=== PATIENT | female | born 1970 | race Hispanic/Latino ===

== ENCOUNTER 2020-06-14 22:34 | Inpatient (IN) | payer OTHER ==
[~2020-06-14] VITALS: Ht 160 cm; Wt 77.6 kg
[2020-06-15] VITALS (10 sets, daily range): BP systolic 94–111; BP diastolic 46–60
[2020-06-15 00:27] LABS: CREATININE 0.8 mg/dL (0.5-1.5); POTASSIUM 3.3 mmol/L (3.5-5.1)
[2020-06-15 00:28] LABS: INR 1.56 (0.85-1.15); PROTHROMBIN TIME 16.3 SEC (9.6-11.6)
[2020-06-15 00:29] LABS: PARTIAL THROMBOPLASTIN TIME 24.8 SEC (26.3-35.5)
[2020-06-15 00:31] LABS: ALBUMIN 2.7 g/dL (3.5-5.0); BASOPHILS % (AUTO) 0.2 % (0.0-5.0); BILIRUBIN,TOTAL 1.4 mg/dL (0.2-1.0); EOSINOPHILS % (AUTO) 0.8 % (0.0-8.0); HEMATOCRIT 32.4 % (36-48); LYMPHOCYTES % (AUTO) 20.9 % (21.0-51.0); MEAN CORPUSCULAR HEMOGLOBIN 35.3 pg (27.0-33.0); MEAN CORPUSCULAR HGB CONC 33.6 g/dL (32.0-36.0); MEAN CORPUSCULAR VOLUME 104.9 fL (79-99); MONOCYTES % (AUTO) 11.4 % (3.0-13.0); NEUTROPHILS % (AUTO) 65.5 % (40.0-77.0); PLATELET COUNT (AUTO) 40 K/uL (130-400); RED BLOOD CELL COUNT(AUTO) 3.09 MIL/uL (4.00-5.50); RED CELL DISTRIBUTION WIDTH 15.5 % (11.0-15.5); TOTAL PROTEIN, SERUM 6.7 g/dL (6.0-8.3)
[2020-06-15 00:35] LABS: B-TYPE NATRIURETIC PEPTIDE 30 pg/mL (0-100)
[2020-06-15] MEDS ORDERED: SODIUM CHLORIDE 0.9% 1000ML 1,000 ML IV ONE (02:48)
[2020-06-15 03:03] LABS: APPEARANCE,URINE Clear (CLEAR); BILIRUBIN,URINE Small (NEGATIVE); COLOR,URINE Dark Yellow (YELLOW); GLUCOSE, URINE (UA) Negative (NEGATIVE); KETONES,URINE Trace mg/dL (NEGATIVE); LEUKOCYTE ESTERASE ,URINE Negative (NEGATIVE); NITRATE,URINE Negative (NEGATIVE); OCCULT BLOOD,URINE Negative (NEGATIVE); PROTEIN,URINE Negative (NEGATIVE)
[2020-06-15] MEDS ORDERED: ACETAMINOPHEN 325 MG TAB PO PRN (03:15)
[2020-06-15] MEDS ORDERED: MORPHINE SULFATE 2 MG/ML 1ML SYG IV PRN (03:15)
[2020-06-15] MEDS ORDERED: ONDANSETRON HCL 4 MG/2 ML VIAL IV PRN (03:15)
[2020-06-15] MEDS ORDERED: LEVOFLOXACIN 500 MG/D5W 100 ML 100 ML ONE (03:35)
[2020-06-15] MEDS ORDERED: MORPHINE SULFATE 2 MG/ML 1ML SYG ONE (03:52)
[2020-06-15 04:50] LABS: EOSINOPHILS % (AUTO) 1.5 % (0.0-8.0); HEMATOCRIT 25.3 % (36-48); LYMPHOCYTES % (AUTO) 25.7 % (21.0-51.0); MEAN CORPUSCULAR HGB CONC 33.2 g/dL (32.0-36.0); MEAN CORPUSCULAR VOLUME 105.4 fL (79-99); MONOCYTES % (AUTO) 12.7 % (3.0-13.0); PLATELET COUNT (AUTO) 29 K/uL (130-400); RED CELL DISTRIBUTION WIDTH 15.1 % (11.0-15.5); WHITE BLOOD COUNT (AUTO) 2.7 K/uL (4.8-10.8)
[2020-06-15 04:58] LABS: INR 1.68 (0.85-1.15); PROTHROMBIN TIME 17.5 SEC (9.6-11.6)
[2020-06-15 04:59] LABS: PARTIAL THROMBOPLASTIN TIME 29.8 SEC (26.3-35.5)
[2020-06-15 05:15] LABS: ALBUMIN 2.1 g/dL (3.5-5.0); CREATININE 0.6 mg/dL (0.5-1.5); TOTAL PROTEIN, SERUM 5.2 g/dL (6.0-8.3)
[2020-06-15 05:18] LABS: POTASSIUM 2.9 mmol/L (3.5-5.1)
[2020-06-15] MEDS ORDERED: POTASSIUM CHLORIDE 20MEQ/100ML 100 ML IV ONE ×2 (05:39→07:53)
[2020-06-15] MEDS ORDERED: LIDOCAINE HCL-MPF 1% 2ML VIAL ONE ×2 (05:39→07:52)
[2020-06-15 05:56] LABS: HEMOGLOBIN A1C 4.7 % (4.0-6.0)
[2020-06-15] MEDS ORDERED: ACETAMINOPHEN 325 MG TAB ONE (07:53)
[2020-06-15] MEDS ORDERED: LIDOCAINE HCL-MPF 1% 2ML VIAL IV PRN (08:15)
[2020-06-15] MEDS ORDERED: POTASSIUM CHLORIDE 10% ELIXIR 20 MEQ/15 ML UDCUP PO PRN (08:15)
[2020-06-15] MEDS ORDERED: POTASSIUM CHLORIDE 10MEQ/100ML 100 ML IV PRN (08:15)
[2020-06-15] MEDS ORDERED: DEXTROSE 50%-WATER 50 ML DISP.SYRIN IV PRN (08:30)
[2020-06-15] MEDS ORDERED: GLUCAGON 1MG KIT 1 MG ML IM PRN (08:30)
[2020-06-15] MEDS: FAMOTIDINE/PF 20 MG/2 ML VIAL IV SCH ×2 (09:00→21:54)
[2020-06-15] MEDS ORDERED: SPIR50TA PO (11:02)
[2020-06-15] MEDS ORDERED: FURO20TA4 PO (11:02)
[2020-06-15] MEDS ORDERED: RIFA550T PO (11:02)
[2020-06-15] MEDS ORDERED: FOLI0.4T6 PO (11:02)
[2020-06-15] MEDS ORDERED: PANT40TA54 PO (11:02)
[2020-06-15] MEDS ORDERED: CYAN500T9 PO (11:02)
[2020-06-15] MEDS ORDERED: VITA-164 PO (11:02)
[2020-06-15] MEDS ORDERED: LACT10SO9 PO (11:02)
[2020-06-15 11:35] LABS: CREATININE 0.5 mg/dL (0.5-1.5)
[2020-06-15 13:40] LABS: APPEARANCE BODY FLUID CLEAR (CLEAR); SPECIMENTYPE,BODY FLUID ASCITES
[2020-06-15 13:41] LABS: BODY FLUID RBC 578 /cu. mm.; BODY FLUID WBC 218 /cu. mm.; COLOR,BODY FLUID YELLOW (LT YELLOW); TOTAL VOLUME,BODY FLUID 3100 mL
[2020-06-15 13:49] LABS: BF LYMPHOCYTE 15 %; BF MESOTHELIAL 62 %; BF MONOCYTE 15 %
[2020-06-15] MEDS ORDERED: LACTATED RINGERS 1000ML 1,000 ML IV SCH (15:00)
[2020-06-15 15:11] LABS: CREATININE 0.6 mg/dL (0.5-1.5); POTASSIUM 3.8 mmol/L (3.5-5.1)
[2020-06-15 15:53] LABS: HEMATOCRIT 28.2 % (36-48)
[2020-06-15] MEDS ORDERED: PHARMACY COMMUNICATION MISC SCH (16:00)
[2020-06-15 16:30] LABS: % IRON SATURATION 43.2 % (22-44)
[2020-06-15] MEDS ORDERED: ALBUMIN (HUMAN) 5% 250 ML IV SCH (16:45)
[2020-06-15 18:47] LABS: CREATININE 0.7 mg/dL (0.5-1.5); POTASSIUM 3.5 mmol/L (3.5-5.1)
[2020-06-15] MEDS ORDERED: LACTULOSE 20 GM/30 ML UDCUP ONE (21:51)
[2020-06-15] MEDS: MIDODRINE HCL 5 MG TABLET PO SCH (21:53)
[2020-06-15 22:34] LABS: CREATININE 0.7 mg/dL (0.5-1.5); POTASSIUM 3.4 mmol/L (3.5-5.1)
[2020-06-15] MEDS ORDERED: LACTULOSE 20 GM/30 ML UDCUP PO SCH (22:45)
[2020-06-16 00:28] VITALS: BP 101/58
[2020-06-16] MEDS: LEVOFLOXACIN 500 MG/D5W 100 ML 100 ML IV SCH (03:58)
[2020-06-16] MEDS: POTASSIUM CHLORIDE 20 MEQ ERTAB PO PRN ×2 (04:15→06:03)
[2020-06-16 04:28] VITALS: BP 99/60
[2020-06-16 08:00] VITALS: BP 99/59
[2020-06-16] MEDS: MIDODRINE HCL 5 MG TABLET PO SCH ×3 (09:08→20:20)
[2020-06-16] MEDS: FAMOTIDINE/PF 20 MG/2 ML VIAL IV SCH ×2 (09:12→20:20)
[2020-06-16 12:00] VITALS: BP 102/60
[2020-06-16] MEDS: RIFAXIMIN 550 MG TABLET PO SCH ×2 (12:11→20:20)
[2020-06-16] MEDS: CYANOCOBALAMIN (VITAMIN B-12) 1,000 MCG TABLET PO SCH (12:12)
[2020-06-16] MEDS: VITAMIN E 400 UNIT CAPSULE PO SCH (12:12)
[2020-06-16] MEDS: LACTULOSE 20 GM/30 ML UDCUP PO SCH ×2 (12:12→17:41)
[2020-06-16] MEDS: SPIRONOLACTONE 25 MG TAB PO SCH (12:12)
[2020-06-16] MEDS: FOLIC ACID 1 MG TABLET PO SCH (12:12)
[2020-06-16] MEDS: FUROSEMIDE 20 MG TABLET PO SCH (12:12)
[2020-06-16 16:00] VITALS: BP 93/57
[2020-06-16 16:08] LABS: HEPATITIS A ANTIBODY IGM Negative (Negative); HEPATITIS B CORE IGM Negative (Negative); HEPATITIS Bs ANTIGEN SCREEN P Negative (Negative)
[2020-06-16 19:00] VITALS: BP 102/64
[2020-06-17 00:24] VITALS: BP 117/72
[2020-06-17] MEDS: LEVOFLOXACIN 500 MG/D5W 100 ML 100 ML IV SCH (03:32)
[2020-06-17] MEDS: LACTULOSE 20 GM/30 ML UDCUP PO SCH ×3 (03:32→18:36)
[2020-06-17 05:50] VITALS: BP 103/58
[2020-06-17 08:17] VITALS: BP 92/56
[2020-06-17 08:25] LABS: EOSINOPHILS % (AUTO) 1.7 % (0.0-8.0); LYMPHOCYTES % (AUTO) 23.8 % (21.0-51.0); MEAN CORPUSCULAR HEMOGLOBIN 35.8 pg (27.0-33.0); MEAN CORPUSCULAR HGB CONC 33.7 g/dL (32.0-36.0); MEAN CORPUSCULAR VOLUME 106.4 fL (79-99); MONOCYTES % (AUTO) 12.1 % (3.0-13.0); NEUTROPHILS % (AUTO) 61.1 % (40.0-77.0); PLATELET COUNT (AUTO) 44 K/uL (130-400); RED BLOOD CELL COUNT(AUTO) 2.82 MIL/uL (4.00-5.50); RED CELL DISTRIBUTION WIDTH 15.7 % (11.0-15.5); WHITE BLOOD COUNT (AUTO) 2.4 K/uL (4.8-10.8)
[2020-06-17 08:38] LABS: ALBUMIN 2.4 g/dL (3.5-5.0); BILIRUBIN,TOTAL 1.8 mg/dL (0.2-1.0); CREATININE 0.6 mg/dL (0.5-1.5); MAGNESIUM 1.7 mg/dL (1.80-2.40); POTASSIUM 3.7 mmol/L (3.5-5.1); TOTAL PROTEIN, SERUM 5.6 g/dL (6.0-8.3)
[2020-06-17] MEDS: FUROSEMIDE 20 MG TABLET PO SCH (09:00)
[2020-06-17 09:37] LABS: EOSINOPHILS % (MANUAL) 3 % (1-6); LYMPHOCYTES % (MANUAL) 25 % (22-44); MAN.DIFF COMMENT-IMPRESSION MANUAL DIFFERENTIAL; MONOCYTES % (MANUAL) 12 % (2-9); PLATELET MORPHOLOGY COMMENT MARKED DECREASE; SEGMENTED NEUTROPHILS % 60 % (40-70)
[2020-06-17] MEDS: FAMOTIDINE/PF 20 MG/2 ML VIAL IV SCH ×2 (10:09→21:51)
[2020-06-17] MEDS: RIFAXIMIN 550 MG TABLET PO SCH ×2 (10:10→21:52)
[2020-06-17] MEDS: SPIRONOLACTONE 25 MG TAB PO SCH (10:11)
[2020-06-17] MEDS: VITAMIN E 400 UNIT CAPSULE PO SCH (10:11)
[2020-06-17] MEDS: CYANOCOBALAMIN (VITAMIN B-12) 1,000 MCG TABLET PO SCH (10:11)
[2020-06-17] MEDS: MIDODRINE HCL 5 MG TABLET PO SCH ×3 (10:11→21:52)
[2020-06-17] MEDS: FOLIC ACID 1 MG TABLET PO SCH (10:11)
[2020-06-17 11:00] VITALS: BP 94/52
[2020-06-17] MEDS: MAGNESIUM 2GM PREMIX 50ML 50 ML IV SCH (14:21)
[2020-06-17 16:25] VITALS: BP 112/61
[2020-06-17 19:58] VITALS: BP 107/57
[2020-06-18 00:32] VITALS: BP 110/61
[2020-06-18] MEDS: LEVOFLOXACIN 500 MG/D5W 100 ML 100 ML IV SCH (03:11)
[2020-06-18] MEDS: LACTULOSE 20 GM/30 ML UDCUP PO SCH ×4 (03:11→22:25)
[2020-06-18 04:03] VITALS: BP 99/62
[2020-06-18 05:38] LABS: EOSINOPHILS % (AUTO) 1.6 % (0.0-8.0); HEMATOCRIT 32.7 % (36-48); LYMPHOCYTES % (AUTO) 17.5 % (21.0-51.0); MEAN CORPUSCULAR HEMOGLOBIN 34.9 pg (27.0-33.0); MEAN CORPUSCULAR HGB CONC 33.6 g/dL (32.0-36.0); MEAN CORPUSCULAR VOLUME 103.8 fL (79-99); MONOCYTES % (AUTO) 13.1 % (3.0-13.0); PLATELET COUNT (AUTO) 58 K/uL (130-400); RED BLOOD CELL COUNT(AUTO) 3.15 MIL/uL (4.00-5.50); RED CELL DISTRIBUTION WIDTH 16.2 % (11.0-15.5)
[2020-06-18 06:01] LABS: ALBUMIN 2.5 g/dL (3.5-5.0); BILIRUBIN,TOTAL 1.8 mg/dL (0.2-1.0); CREATININE 0.9 mg/dL (0.5-1.5); POTASSIUM 3.7 mmol/L (3.5-5.1); TOTAL PROTEIN, SERUM 5.8 g/dL (6.0-8.3)
[2020-06-18 08:07] VITALS: BP 90/50
[2020-06-18] MEDS: RIFAXIMIN 550 MG TABLET PO SCH ×2 (09:53→22:25)
[2020-06-18] MEDS: FAMOTIDINE/PF 20 MG/2 ML VIAL IV SCH ×2 (09:54→22:26)
[2020-06-18] MEDS: VITAMIN E 400 UNIT CAPSULE PO SCH (09:54)
[2020-06-18] MEDS: MIDODRINE HCL 5 MG TABLET PO SCH ×3 (09:54→22:25)
[2020-06-18] MEDS: SPIRONOLACTONE 25 MG TAB PO SCH (09:54)
[2020-06-18] MEDS: FOLIC ACID 1 MG TABLET PO SCH (09:54)
[2020-06-18] MEDS: CYANOCOBALAMIN (VITAMIN B-12) 1,000 MCG TABLET PO SCH (09:55)
[2020-06-18 12:27] VITALS: BP 119/69
[2020-06-18 18:03] VITALS: BP 102/64
[2020-06-18 20:43] VITALS: BP 107/64
[2020-06-19 00:46] VITALS: BP 96/56
[2020-06-19] MEDS: LEVOFLOXACIN 500 MG/D5W 100 ML 100 ML IV SCH (03:03)
[2020-06-19 04:28] VITALS: BP 119/56
[2020-06-19] MEDS: LACTULOSE 20 GM/30 ML UDCUP PO SCH ×2 (05:25→13:14)
[2020-06-19 06:13] LABS: BASOPHILS % (AUTO) 0.3 % (0.0-5.0); EOSINOPHILS % (AUTO) 2.4 % (0.0-8.0); HEMATOCRIT 33.2 % (36-48); LYMPHOCYTES % (AUTO) 22.8 % (21.0-51.0); MEAN CORPUSCULAR HEMOGLOBIN 35.7 pg (27.0-33.0); MEAN CORPUSCULAR HGB CONC 33.7 g/dL (32.0-36.0); MEAN CORPUSCULAR VOLUME 105.7 fL (79-99); MONOCYTES % (AUTO) 11.8 % (3.0-13.0); NEUTROPHILS % (AUTO) 61.8 % (40.0-77.0); PLATELET COUNT (AUTO) 46 K/uL (130-400); RED BLOOD CELL COUNT(AUTO) 3.14 MIL/uL (4.00-5.50); RED CELL DISTRIBUTION WIDTH 16.4 % (11.0-15.5); WHITE BLOOD COUNT (AUTO) 3.4 K/uL (4.8-10.8)
[2020-06-19 06:38] LABS: ALBUMIN 2.4 g/dL (3.5-5.0); BILIRUBIN,DIRECT 0.6 mg/dL (0.0-0.3); BILIRUBIN,TOTAL 2.2 mg/dL (0.2-1.0); CREATININE 0.6 mg/dL (0.5-1.5); MAGNESIUM 1.7 mg/dL (1.80-2.40); POTASSIUM 3.7 mmol/L (3.5-5.1); TOTAL PROTEIN, SERUM 5.5 g/dL (6.0-8.3)
[2020-06-19] MEDS: CYANOCOBALAMIN (VITAMIN B-12) 1,000 MCG TABLET PO SCH (09:00)
[2020-06-19 09:55] VITALS: BP 91/51
[2020-06-19] MEDS: MAGNESIUM 2GM PREMIX 50ML 50 ML IV SCH (11:07)
[2020-06-19] MEDS: MIDODRINE HCL 5 MG TABLET PO SCH ×2 (11:07→15:24)
[2020-06-19] MEDS: VITAMIN E 400 UNIT CAPSULE PO SCH (11:08)
[2020-06-19] MEDS: FOLIC ACID 1 MG TABLET PO SCH (11:08)
[2020-06-19] MEDS: SPIRONOLACTONE 25 MG TAB PO SCH (11:08)
[2020-06-19] MEDS: RIFAXIMIN 550 MG TABLET PO SCH (11:08)
[2020-06-19] MEDS: FAMOTIDINE/PF 20 MG/2 ML VIAL IV SCH (11:09)
[2020-06-19] MEDS ORDERED: RIFA550T PO (11:51)
[2020-06-19] MEDS ORDERED: MIDO10TA PO (11:51)
[2020-06-19] MEDS ORDERED: LACT PO (11:51)
[2020-06-19] MEDS ORDERED: SPIR50TA PO (11:51)
[2020-06-19 14:33] VITALS: BP 113/66
[2020-06-21 15:13] LABS: ALPHA-1-ANTITRYPSIN 115 mg/dL (101-187)
== END 2020-06-19 17:00 | disposition home or self-care (01) | DRG 871 ==
LOC: EDH 22:34 → EDHIP 22:35 → 3DH 06-15 10:22
PROVIDERS: ADMIT Internal Medicine; ATTEND Internal Medicine
PROC: 0W9G3ZZ Drainage of Peritoneal Cavity, Percutaneous Approach (ICD-10-PCS; principal; 2020-06-15)
DX: A41.9 Sepsis, unspecified organism (principal); G93.41 Metabolic encephalopathy; R18.8 Other ascites; D61.818 Other pancytopenia; K76.6 Portal hypertension; K72.90 Hepatic failure, unspecified without coma; K74.60 Unspecified cirrhosis of liver; K76.0 Fatty (change of) liver, not elsewhere classified; D73.1 Hypersplenism; D69.59 Other secondary thrombocytopenia; E87.6 Hypokalemia; Z20.822 Contact with and (suspected) exposure to COVID-19; E88.09 Other disorders of plasma-protein metabolism, not elsewhere classified; Z90.710 Acquired absence of both cervix and uterus
CPT/HCPCS: 36415; 49083; 70450; 71045; 71250; 74176; 80048; 80053; 80074; 80076; 81003; 82103; 82104; 82140; 82525; 82550; 82728; 83036; 83540; 83550; 83605; 83690; 83735; 83880; 84145; 84484; 85014; 85018; 85025; 85610; 85730; 86038; 86235; 86255; 86701; 87040; 87071; 87088; 87205; 87390; 87426; 89051; 93005; 93306; 93356; G0378; J1956; J2405; J3475; J3480; J3490; J7030; P9045; U0003

== ENCOUNTER → 2020-07-16 | Outpatient (CLI) | payer OTHER ==
[~2020-07-16] MED LIST: CYAN500T9 PO; FOLI0.4T6 PO; LACT PO; LACT10SO9 PO; MIDO10TA PO; PANT40TA54 PO; RIFA550T PO; SPIR50TA PO; VITA-164 PO
[2020-07-16 12:04] LABS: BASOPHILS % (AUTO) 0.4 % (0.0-5.0); EOSINOPHILS % (AUTO) 0.7 % (0.0-8.0); HEMATOCRIT 38.1 % (36-48); LYMPHOCYTES % (AUTO) 22.5 % (21.0-51.0); MEAN CORPUSCULAR HEMOGLOBIN 35.8 pg (27.0-33.0); MEAN CORPUSCULAR HGB CONC 33.6 g/dL (32.0-36.0); MEAN CORPUSCULAR VOLUME 106.4 fL (79-99); MONOCYTES % (AUTO) 8.9 % (3.0-13.0); NEUTROPHILS % (AUTO) 67.1 % (40.0-77.0); PLATELET COUNT (AUTO) 75 K/uL (130-400); RED BLOOD CELL COUNT(AUTO) 3.58 MIL/uL (4.00-5.50); RED CELL DISTRIBUTION WIDTH 15.4 % (11.0-15.5); WHITE BLOOD COUNT (AUTO) 5.6 K/uL (4.8-10.8)
[2020-07-16] MEDS: ALBUMIN (HUMAN) 25% 200 ML IV SCH ×2 (12:05→12:41)
[2020-07-16 12:12] LABS: INR 1.99 (0.85-1.15); PROTHROMBIN TIME 20.4 SEC (9.6-11.6)
[2020-07-16 12:20] LABS: ALBUMIN 2.4 g/dL (3.5-5.0); BILIRUBIN,TOTAL 4.2 mg/dL (0.2-1.0); CREATININE 0.7 mg/dL (0.5-1.5); POTASSIUM 3.5 mmol/L (3.5-5.1); TOTAL PROTEIN, SERUM 6.6 g/dL (6.0-8.3)
[2020-07-16 13:12] LABS: ALBUMIN,BODY FLUID 0.3 g/dL
[2020-07-16 14:06] LABS: APPEARANCE BODY FLUID CLEAR (CLEAR); COLOR,BODY FLUID YELLOW (LT YELLOW); SPECIMENTYPE,BODY FLUID ASCITES; TOTAL VOLUME,BODY FLUID 6000 mL
[2020-07-16 14:07] LABS: BODY FLUID RBC 540 /cu. mm.; BODY FLUID WBC 94 /cu. mm.
[2020-07-16 14:14] LABS: BF LYMPHOCYTE 56 %; BF MESOTHELIAL 14 %; BF MONOCYTE 19 %
== END | disposition home or self-care (01) ==
LOC: RAH 10:56
PROVIDERS: ATTEND Internal Medicine Gastroenterology
DX: R18.8 Other ascites (principal); K74.60 Unspecified cirrhosis of liver; Z79.01 Long term (current) use of anticoagulants
CPT/HCPCS: 36415; 49083; 80053; 82042; 84157; 85025; 85610; 86038; 86255; 87071; 87205; 89051; A4215; 96365; P9046

== ENCOUNTER → 2020-07-22 | Outpatient (CLI) | payer OTHER ==
[~2020-07-22] MED LIST changes: +ALBUMIN (HUMAN) 25% 200 ML IV SCH
[2020-07-22 14:04] LABS: APPEARANCE BODY FLUID CLEAR (CLEAR); COLOR,BODY FLUID YELLOW (LT YELLOW); SPECIMENTYPE,BODY FLUID ASCITES
[2020-07-22 14:05] LABS: BODY FLUID RBC 627 /cu. mm.; BODY FLUID WBC 86 /cu. mm.; TOTAL VOLUME,BODY FLUID 6700 mL
[2020-07-22 14:13] LABS: ALBUMIN,BODY FLUID 0.4 g/dL
[2020-07-22 14:26] LABS: BF LYMPHOCYTE 30 %; BF MESOTHELIAL 49 %; BF MONOCYTE 14 %
== END | disposition home or self-care (01) ==
LOC: RAH 07:52
PROVIDERS: ATTEND Internal Medicine Gastroenterology
DX: R18.8 Other ascites (principal); K74.60 Unspecified cirrhosis of liver; D53.9 Nutritional anemia, unspecified; F41.9 Anxiety disorder, unspecified; Z98.891 History of uterine scar from previous surgery; Z79.899 Other long term (current) drug therapy; Z90.710 Acquired absence of both cervix and uterus
CPT/HCPCS: 49083; 82042; 84157; 87071; 87205; 89051; A4215; P9046; 96365

== ENCOUNTER → 2020-07-29 | Outpatient (CLI) | payer OTHER ==
[2020-07-29 13:09] LABS: APPEARANCE BODY FLUID CLEAR (CLEAR); BODY FLUID RBC 1400 /cu. mm.; BODY FLUID WBC 138 /cu. mm.; COLOR,BODY FLUID YELLOW (LT YELLOW); SPECIMENTYPE,BODY FLUID ASCITES; TOTAL VOLUME,BODY FLUID 6100 mL
[2020-07-29 13:25] LABS: BF LYMPHOCYTE 23 %; BF MESOTHELIAL 40 %; BF MONOCYTE 24 %
[2020-07-29 13:30] LABS: ALBUMIN,BODY FLUID < 0.6 g/dL
== END | disposition home or self-care (01) ==
LOC: RAH 08:15
PROVIDERS: ATTEND Internal Medicine Gastroenterology
DX: R18.8 Other ascites (principal); K74.69 Other cirrhosis of liver; K76.0 Fatty (change of) liver, not elsewhere classified; Z90.710 Acquired absence of both cervix and uterus; Z98.891 History of uterine scar from previous surgery; Z72.89 Other problems related to lifestyle; Z79.899 Other long term (current) drug therapy
CPT/HCPCS: 49083; 82042; 84157; 87071; 87205; 89051; A4215; 96365

== ENCOUNTER 2020-08-03 13:01 | Inpatient (IN) | payer OTHER ==
[2020-08-03] VITALS (15 sets, daily range): BP systolic 51–252; BP diastolic 19–106
[~2020-08-03] VITALS: Ht 160 cm; Wt 72.6 kg
[~2020-08-03 13:01] MED LIST changes: -ALBUMIN (HUMAN) 25% 200 ML IV SCH
[2020-08-03 13:28] LABS: BASOPHILS % (AUTO) 0.5 % (0.0-5.0); EOSINOPHILS % (AUTO) 0.5 % (0.0-8.0); HEMATOCRIT 43.4 % (36-48); LYMPHOCYTES % (AUTO) 29.6 % (21.0-51.0); MEAN CORPUSCULAR HEMOGLOBIN 35.2 pg (27.0-33.0); MEAN CORPUSCULAR HGB CONC 30.9 g/dL (32.0-36.0); MEAN CORPUSCULAR VOLUME 113.9 fL (79-99); NEUTROPHILS % (AUTO) 62.5 % (40.0-77.0); PLATELET COUNT (AUTO) 69 K/uL (130-400); RED BLOOD CELL COUNT(AUTO) 3.81 MIL/uL (4.00-5.50); RED CELL DISTRIBUTION WIDTH 17.9 % (11.0-15.5); WHITE BLOOD COUNT (AUTO) 2.2 K/uL (4.8-10.8)
[2020-08-03 13:39] LABS: ALBUMIN 2.6 g/dL (3.5-5.0); CHLORIDE 102 mmol/L (101-111); GLOMERULAR FILTR. RATE CALC 28 mL/min (>60); POTASSIUM 3.5 mmol/L (3.5-5.1); SODIUM SERUM 133 mmol/L (136-145); UREA NITROGEN, BLOOD 13 mg/dL (7-18)
[2020-08-03 13:42] LABS: AMYLASE 31 U/L (25-115); ASPARTATE AMINOTRANSFERASE 109 U/L (10-37); BILIRUBIN,TOTAL 4.7 mg/dL (0.2-1.0); CARBON DIOXIDE 9 mmol/L (21-32); CREATINE KINASE, TOTAL 65 U/L (21-232); GLUCOSE,RANDOM 47 mg/dL (70-105); TOTAL PROTEIN, SERUM 5.5 g/dL (6.0-8.3)
[2020-08-03 13:44] LABS: LIPASE < 50 U/L (114-286)
[2020-08-03] MEDS ORDERED: DEXTROSE 50%-WATER 50 ML DISP.SYRIN IV ONE (13:44)
[2020-08-03] MEDS ORDERED: LACTULOSE 20 GM/30 ML UDCUP PO ONE (13:45)
[2020-08-03 13:47] LABS: B-TYPE NATRIURETIC PEPTIDE 181 pg/mL (0-100)
[2020-08-03 14:10] LABS: ALANINE AMINOTRANSFERASE 30 U/L (12-78); BAND NEUTROPHILS % (MANUAL) 8 % (0-2); LYMPHOCYTES % (MANUAL) 20 % (22-44); MONOCYTES % (MANUAL) 4 % (2-9); NUCLEATED RED BLOOD CELLS 7.7 % (0.0-0.19); REACTIVE LYMPHOCYTES 24 % (0-0); SEGMENTED NEUTROPHILS % 44 % (40-70)
[2020-08-03 14:11] LABS: PLATELET MORPHOLOGY COMMENT MARKED DECREASE
[2020-08-03] MEDS ORDERED: NOREPINEPHRIN 4MG/NS 250ML 250 ML IV ONE (14:15)
[2020-08-03] MEDS ORDERED: NOREPINEPHRIN 4MG/NS 250ML 250 ML IV SCH (14:15)
[2020-08-03] MEDS ORDERED: ALBUMIN (HUMAN) 25% 100 ML IV ONE ×2 (15:06→15:24)
[2020-08-03] MEDS ORDERED: 0.9%NACL 1000ML 1,000 ML IV SCH (15:15)
[2020-08-03] MEDS ORDERED: ONDANSETRON 4MG INJ IV PRN (15:15)
[2020-08-03] MEDS ORDERED: ACETAMINOPHEN 325 MG TAB PO PRN ×2 (15:15)
[2020-08-03] MEDS ORDERED: ZOSYN 3.375GM+NS 50ML 50 ML IV ONE (15:41)
[2020-08-03] MEDS ORDERED: 0.9%NACL 50ML 50 ML IV ONE ×2 (15:49→22:49)
[2020-08-03] MEDS: ZOSYN 3.375GM+NS 50ML 50 ML IV SCH (15:58)
[2020-08-03] MEDS ORDERED: LACTATED RINGERS 1000ML IV SCH (16:45)
[2020-08-03] MEDS ORDERED: VASOPRESSIN 40 UNITS in 0.9%NACL 50ML 40 ML IV STA (17:49)
[2020-08-03 18:53] LABS: ABG BASE EXCESS -23.8 mmol/L (-2.0-3.0); ABG HCO3 5.6 mmol/L (21.0-28.0); ABG OXYGEN SATURATION 89.4 % (95.0-99.0); ABG PCO2 22 mmHg (32-45)
[2020-08-03] MEDS ORDERED: SODIUM BICARB 50MEQ 50ML VIAL IV ONE (19:45)
[2020-08-03] MEDS ORDERED: PHARMACY COMMUNICATION MISC STA ×2 (19:45→19:56)
[2020-08-03] MEDS ORDERED: VASOPRESSIN 40 UNITS in 0.9%NACL 50ML 40 ML IV SCH (20:15)
[2020-08-03] MEDS ORDERED: LACTULOSE 20 GM/30 ML UDCUP PO SCH (21:00)
[2020-08-03] MEDS ORDERED: MIDODRINE HCL 5 MG TABLET PO SCH (21:00)
[2020-08-03] MEDS ORDERED: HYDROCORTISONE SOD SUCCINATE 100 MG/2 ML VIAL IV SCH (21:00)
[2020-08-03] MEDS ORDERED: OCTREOTIDE ACETATE 100 MCG/ML AMP SQ SCH (21:00)
[2020-08-03] MEDS ORDERED: CEFTRIAXONE 1G VIAL IV SCH (21:00)
[2020-08-03] MEDS ORDERED: RIFAXIMIN 550 MG TABLET PO SCH (21:00)
[2020-08-03] MEDS: ALBUMIN (HUMAN) 25% 50 ML IV SCH (22:00)
[2020-08-03] MEDS: SODIUM BICARB 50MEQ 50ML VIAL 150 MEQ in DEXTROSE 5%-WATER 1,000 ML IV SCH (22:00)
[2020-08-03] MEDS ORDERED: 0.9%NACL 1000ML 1,000 ML IV ONE (23:39)
[2020-08-04] VITALS (9 sets, daily range): BP systolic 61–164; BP diastolic 17–112
[2020-08-04] MEDS ORDERED: 0.9%NACL 1000ML 1,000 ML IV ONE (01:00)
[2020-08-04 01:08] LABS: ABG BASE EXCESS -26.9 mmol/L (-2.0-3.0); ABG HCO3 7.2 mmol/L (21.0-28.0); ABG OXYGEN SATURATION 21.8 % (95.0-99.0); ABG PCO2 44 mmHg (32-45)
[2020-08-04] MEDS ORDERED: SODIUM BICARB 50MEQ 50ML VIAL 150 ML ONE (01:21)
[2020-08-04] MEDS ORDERED: SODIUM BICARB 50MEQ 50ML VIAL IV ONE (01:30)
[2020-08-04] MEDS: SODIUM BICARB 50MEQ 50ML VIAL 150 MEQ in DEXTROSE 5%-WATER 1,000 ML IV SCH (05:02)
[2020-08-04] MEDS ORDERED: ALBUMIN (HUMAN) 25% 0 ML IV ONE (05:13)
[2020-08-04 05:20] LABS: INR > 7.00 (0.85-1.15); PROTHROMBIN TIME > 90.0 SEC (9.6-11.6)
[2020-08-04 05:21] LABS: D-DIMER 1632 ng/mL (0-500)
[2020-08-04] MEDS ORDERED: 0.9%NACL 50ML 50 ML IV ONE (05:21)
[2020-08-04] MEDS: ZOSYN 3.375GM+NS 50ML 50 ML IV SCH (05:24)
[2020-08-04] MEDS: ALBUMIN (HUMAN) 25% 50 ML IV SCH (05:31)
[2020-08-04 07:01] LABS: BASOPHILS % (AUTO) 0.6 % (0.0-5.0); EOSINOPHILS % (AUTO) 9.3 % (0.0-8.0); HEMATOCRIT 37.9 % (36-48); LYMPHOCYTES % (AUTO) 30.9 % (21.0-51.0); MEAN CORPUSCULAR HEMOGLOBIN 36.1 pg (27.0-33.0); MEAN CORPUSCULAR HGB CONC 29.8 g/dL (32.0-36.0); MEAN CORPUSCULAR VOLUME 121.1 fL (79-99); MONOCYTES % (AUTO) 10.5 % (3.0-13.0); NEUTROPHILS % (AUTO) 35.1 % (40.0-77.0); RED BLOOD CELL COUNT(AUTO) 3.13 MIL/uL (4.00-5.50); RED CELL DISTRIBUTION WIDTH 17.7 % (11.0-15.5); WHITE BLOOD COUNT (AUTO) 1.6 K/uL (4.8-10.8)
[2020-08-04 07:07] LABS: AMMONIA 254 umol/L (11-32)
[2020-08-04 07:13] LABS: ALANINE AMINOTRANSFERASE 47 U/L (12-78); ALBUMIN 1.4 g/dL (3.5-5.0); ASPARTATE AMINOTRANSFERASE 399 U/L (10-37); CHLORIDE 107 mmol/L (101-111); GLOMERULAR FILTR. RATE CALC 28 mL/min (>60); POTASSIUM 5.4 mmol/L (3.5-5.1); SODIUM SERUM 143 mmol/L (136-145); UREA NITROGEN, BLOOD 14 mg/dL (7-18)
[2020-08-04 07:31] LABS: CARBON DIOXIDE 9 mmol/L (21-32)
[2020-08-04 07:54] LABS: PLATELET COUNT (AUTO) 4 K/uL (130-400)
[2020-08-04 08:15] LABS: NUCLEATED RED BLOOD CELLS 60.2 % (0.0-0.19)
[2020-08-04 08:36] LABS: D-DIMER 2913 ng/mL (0-500); FIBRINOGEN 53 mg/dL (180-350)
[2020-08-04] MEDS ORDERED: FAMOTIDINE 20MG VIAL IV SCH (09:00)
== END 2020-08-04 08:04 | DRG 871 ==
LOC: EDH 13:01 → EDHIP 15:08 → 2CH 22:42
PROVIDERS: ADMIT Internal Medicine; ATTEND Internal Medicine
PROC: 5A09357 Assistance with Respiratory Ventilation, Less than 24 Consecutive Hours, Continuous Positive Airway Pressure (ICD-10-PCS; 2020-08-03)
PROC: 02H633Z Insertion of Infusion Device into Right Atrium, Percutaneous Approach (ICD-10-PCS; 2020-08-03)
PROC: B548ZZA Ultrasonography of Superior Vena Cava, Guidance (ICD-10-PCS; 2020-08-03)
PROC: 0W9G3ZZ Drainage of Peritoneal Cavity, Percutaneous Approach (ICD-10-PCS; 2020-08-03)
PROC: 5A12012 Performance of Cardiac Output, Single, Manual (ICD-10-PCS; principal; 2020-08-04)
DX: A41.9 Sepsis, unspecified organism (principal); R65.21 Severe sepsis with septic shock; E43 Unspecified severe protein-calorie malnutrition; J96.01 Acute respiratory failure with hypoxia; E87.2 Acidosis; E87.1 Hypo-osmolality and hyponatremia; N17.9 Acute kidney failure, unspecified; R18.8 Other ascites; D68.9 Coagulation defect, unspecified; D61.818 Other pancytopenia; I46.9 Cardiac arrest, cause unspecified; J38.4 Edema of larynx; K76.0 Fatty (change of) liver, not elsewhere classified; K72.90 Hepatic failure, unspecified without coma; K74.69 Other cirrhosis of liver; Z68.28 Body mass index [BMI] 28.0-28.9, adult
CPT/HCPCS: 36415; 36600; 49083; 71045; 80053; 82140; 82150; 82435; 82550; 82803; 82947; 82948; 83605; 83690; 83735; 83880; 84132; 84145; 84295; 84484; 85018; 85025; 85378; 85384; 85610; 92950; 93005; 94660; C1729; G0378; J0696; J1720; J2354; J2405; J2543; J3490; J7030; J7070; P9046; P9047